=== PATIENT | male | born 1975 | race Caucasian/White ===

== ENCOUNTER 2018-12-07 18:52 | Emergency (ER) | payer OTHER ==
[~2018-12-07] VITALS: Ht 162.6 cm; Wt 79.8 kg
[2018-12-07 19:03] VITALS: Ht 162.6 cm; Wt 79.8 kg
[2018-12-07 21:24] VITALS: BP 140/90
== END 2018-12-07 21:24 | disposition home or self-care (01) ==
LOC: ED 18:52
DX: H53.8 Other visual disturbances (principal); E11.9 Type 2 diabetes mellitus without complications